=== PATIENT | male | born 1945 | race Caucasian/White ===

== ENCOUNTER 2016-10-13 06:24 | Inpatient (IN) | payer OTHER, BC ==
[~2016-10-13] VITALS: Ht 190.5 cm; Wt 111.1 kg
[~2016-10-13 06:24] MED LIST: BAYER CHEWABLE81 MG PO; BENADRYL25 MG PO; BISACODYL5 MG PO; BUTALBITAL COM1 EAC1 PO; CENTRUM SILVER1 EAC1 PO; CIALIS20 MG PO; DAILY VALUE1 EACH PO; DILAUDID2 MG PO; DOK PLUS TABLE1 EACH PO; EXCEDRIN EXTRA1 EACH PO; FERROUS SULFAT325 MG PO; FLONASE16 G1 BOTH NARES; GLUCOPHAGE500 MG PO; IRON325 M1 PO; LOVENOX40 MG/0.4 SC; MAXALT10 MG PO; MIRALAX255 GM PO; PERCOCET 5/31 TABLET PO; PROTONIX40 MG PO; SKELAXIN800 MG PO; TRAMADOL HCL E100 M1 PO; TREXIMET 85-1 TABLET PO; ULTRAM50 MG PO; VALIUM5 MG PO; VITAMIN C1000 MG PO; VITAMIN D31000 UNIT PO; VOLTAREN 1% GE100 GM TP; ZESTRIL20 MG PO; ZESTRIL5 MG PO; ZOCOR40 MG PO; ZOLOFT100 MG PO
== END 2016-10-13 07:30 | disposition home or self-care (01) | DRG 561 ==
LOC: 2SOUTH 06:24
DX: T84.032A Mechanical loosening of internal right knee prosthetic joint, initial encounter (principal); Z53.8 Procedure and treatment not carried out for other reasons
CPT/HCPCS: J7050

== ENCOUNTER 2016-11-10 06:33 | Inpatient (IN) | payer OTHER, BC ==
[~2016-11-10] VITALS: Ht 193 cm; Wt 112.4 kg
[2016-11-10 07:19] VITALS: BP 125/64
[2016-11-10 16:33] VITALS: BP 128/65
[2016-11-10 20:01] VITALS: BP 140/79
[2016-11-10 23:53] VITALS: BP 103/57
[2016-11-11 06:38] LABS: ANION GAP 5 MEQ/L (2-14); CHLORIDE 105 MEQ/L (99-109); GFR ESTIMATE (CALCULATED) > 59 mL/min/; GLUCOSE 108 mg/dL (70-99); POTASSIUM 4.3 MEQ/L (3.7-5.4); SAMPLE HEMOLYSIS CHECK 0; SAMPLE ICTERIC CHECK 0; SAMPLE LIPEMIA CHECK 0; SODIUM 140 MEQ/L (136-147); UREA NITROGEN (BUN) 22 mg/dL (9-23)
[2016-11-11 08:21] VITALS: BP 144/76
[2016-11-11] MEDS ORDERED: BENADRYL25 MG PO (09:08)
[2016-11-11] MEDS ORDERED: TYLENOL REGULA325 MG PO (09:09)
[2016-11-11] MEDS ORDERED: SENNA PLUS TAB1 EACH PO (09:10)
[2016-11-11] MEDS ORDERED: LOVENOX40 MG/0.4 SC (09:10)
[2016-11-11] MEDS ORDERED: OXYCODONE HCL5 MG PO (09:10)
== END 2016-11-11 12:05 | disposition home or self-care (01) | DRG 468 ==
LOC: 2SOUTH 06:33 → 3EAST 16:10
PROVIDERS: Orthopaedic Surgery
PROC: 0SWV0JZ Revision of Synthetic Substitute in Right Knee Joint, Tibial Surface, Open Approach (ICD-10-PCS; principal; 2016-11-10)
DX: T84.032A Mechanical loosening of internal right knee prosthetic joint, initial encounter (principal); E78.5 Hyperlipidemia, unspecified; M25.561 Pain in right knee; K44.9 Diaphragmatic hernia without obstruction or gangrene; K21.9 Gastro-esophageal reflux disease without esophagitis; G43.909 Migraine, unspecified, not intractable, without status migrainosus; Z98.1 Arthrodesis status
CPT/HCPCS: 80048; 80048 91; 87070; 87075; 87205; 88305; 88331; 97530 GO; C1713; C1776; J0131; J0330; J0690; J1170; J1650; J1885; J2405; J3010; J7050; J7120; S0020